=== PATIENT | male | born 1990 | race Caucasian/White ===

== ENCOUNTER 2018-08-11 08:20 | Emergency (ER) | payer OTHER ==
[~2018-08-11] VITALS: Ht 180.3 cm; Wt 102.2 kg
[2018-08-11 08:24] VITALS: Ht 180.3 cm; Wt 102.2 kg
--- NOTE | 2018-08-11 08:47 | ERD ---
ER Documentation Chief Complaint Chief Complaint CHEST PAIN RADIATING DOWN LEFT ARM LAST NIGHT W/NAUSEA, & RIGHT NECK TODAY HPI 28-year-old smoker with family history of coronary disease presents to the emergency room with approximate 48 hours of chest discomfort. He describes it is intermittent usually associated with stress and usually at rest. The pain is generally located in the center of his chest, pressure-like with occasional radiation to his left arm and right jaw. The patient denies any ripping or tearing sensation, no mid back pain. No numbness or tingling. He denies exertional symptoms, no significant pleuritic pain, no calf swelling. No numbness or tingling or neurologic symptoms. ROS All systems reviewed and are negative except as per history of present illness. Medications Home Meds No Active Prescriptions or Reported Meds Allergies Allergies: Coded Allergies: No Known Allergy (Unverified , 08/11/18) PMhx/Soc Medical and Surgical Hx: pt denies Medical Hx FmHx Family History: coronary disease Physical Exam Vitals Vital Signs Date Temp Pulse Resp B/P (MAP) Pulse Ox O2 O2 Flow FiO2 Time Delivery Rate 08/11/18 98.1 85 14 120/67 99 Room Air 11:43 (84) 08/11/18 77 16 133/91 99 Room Air 09:27 (105) 08/11/18 97.8 75 18 158/90 100 08:24 (112) Physical Exam General: Well developed, well nourished, no acute distress Head: Normocephalic, atraumatic. Eyes: Pupils equally reactive, EOM intact ENT: Moist mucous membranes Neck: Supple, no lymphadenopathy Respiratory: Lungs clear bilaterally, no distress Cardiovascular: RRR, no murmurs, rubs, or gallops Abdominal: Soft, non-tender, non-distended, no peritoneal signs : Deferred MSK: No edema, no unilateral swelling, 5/5 strength Neurologic: Alert and oriented, moving all extremities, normal speech, no focal weakness, no cerebellar signs Skin: No rash Psych: Normal mood Result Diagram: 08/11/18 0849 08/11/18 0849 Results 24 hrs Laboratory Tests Test 08/11/18 08:49 08/11/18 11:25 White Blood Count 8.5 10^3/ul Red Blood Count 5.55 10^6/ul Hemoglobin 16.5 g/dl Hematocrit 50.1 % Mean Corpuscular Volume 90.3 fl Mean Corpuscular Hemoglobin 29.7 pg Mean Corpuscular Hemoglobin Concent 32.9 g/dl Red Cell Distribution Width 12.1 % Platelet Count 231 10^3/UL Mean Platelet Volume 9.6 fl Immature Granulocytes % 0.400 % Neutrophils % 67.5 % Lymphocytes % 23.2 % Monocytes % 6.7 % Eosinophils % 1.8 % Basophils % 0.4 % Nucleated Red Blood Cells % 0.0 /100WBC Immature Granulocytes # 0.030 10^3/ul Neutrophils # 5.8 10^3/ul Lymphocytes # 2.0 10^3/ul Monocytes # 0.6 10^3/ul Eosinophils # 0.2 10^3/ul Basophils # 0.0 10^3/ul Nucleated Red Blood Cells # 0.0 10^3/ul D-Dimer 328.51 ng/ml D-Dimer Comment Sodium Level 142 mmol/L Potassium Level 4.1 mmol/L Chloride Level 102 mmol/L Carbon Dioxide Level 29 mmol/L Anion Gap 11 Blood Urea Nitrogen 16 mg/dl Creatinine 0.92 mg/dl Est Glomerular Filtrat Rate mL/min > 60 mL/min Glucose Level 107 mg/dl Calcium Level 9.6 mg/dl Troponin I < 0.012 ng/ml < 0.012 ng/ml Procedures/MDM EKG, MONITORS, & DIAGNOSTIC IMAGING: EKG: I reviewed and interpreted a 12-lead EKG. Rhythm: Normal sinus rhythm with sinus arrhythmia ST Changes: No contiguous ST segment elevations T waves: No contiguous T wave inversions Impression: [No evidence of acute cardiac ischemia] Repeat EKG: EKG: I reviewed and interpreted a 12-lead EKG. Rhythm: Normal sinus rhythm with sinus arrhythmia ST Changes: No contiguous ST segment elevations T waves: No contiguous T wave inversions Impression: [No evidence of acute cardiac ischemia] Chest x-ray: I reviewed and interpreted a 1 view of the chest Mediastinum: No enlargement Cardiac silhouette: No cardiomegaly Airspace: Clear lung cortez bilaterally without evidence of pneumothorax Bones: No evidence of fracture PROCEDURES: [None] LAB INTERPRETATION: * Negative trop x 2 MEDICAL DECISION MAKING: The patient's history, physical exam and clinical presentation is nonspecific and unlikely related to cardiac etiology. The patient does have 1-2 risk factors including smoking history and family history of coronary disease however his mother and father had cardiac events in their 50s and 60s not in their 20s and 30s. Patient denies exertional symptoms and his chest pain is generally associated with stress. Based on the patient's clinical exam and history and risk factors, I have a much lower clinical concern for pulmonary embolism, acute aortic dissection, pneumothorax, pneumonia, cardiac tamponade HEART Score for Major Cardiac Events from [email or web address] on 08/11/2018 All calculations should be rechecked by clinician prior to use RESULT SUMMARY: 1 points Low Score (0-3 points) Risk of MACE of 0.9-1.7%. Shared Decision Making: We had a conversation regarding risk stratification, MACE rate, and the risks, benefits, alternatives of disposition planning options. Disposition planning: Serial troponin in the emergency room setting with discharge and primary care follow-up would be appropriate. Patient agreeable. ER COURSE: * Trop negative x 2. Remains well appearing without complaints. Given risk stratification as documented above, patient safe for discharge with outpatient follow up. Return precautions discussed. CONSULTATION: [None] DISPOSITION PLAN: Patient discharged with PMD follow up. No meds required. Departure Diagnosis: Primary Impression: Chest pain Chest pain type: unspecified Qualified Codes: R07.9 - Chest pain, unspecified Condition: Stable KERVIN SHERMAN MD Aug 11, 2018 08:47
[2018-08-11 13:07] VITALS: BP 124/74; PULSE 78; RESP 16
== END 2018-08-11 13:07 | disposition home or self-care (01) ==
LOC: E/R 08:20
DX: R07.89 Other chest pain (principal); I25.10 Atherosclerotic heart disease of native coronary artery without angina pectoris
CPT/HCPCS: 36415; 71045; 80048; 84484; 85025; 85378; Z7502